=== PATIENT | female | born 2005 | race Caucasian/White ===

== ENCOUNTER 2023-12-12 22:14 | Emergency (ER) | payer BC, SELFPAY ==
--- NOTE | ~2023-12-12 | XR_ITS ---
EXAMINATION: XR CLAVICLE, RIGHT CLINICAL INFORMATION: Clavicular pain after being tackled COMPARISON: None available. TECHNIQUE: 2 of the right clavicle. FINDINGS: The clavicle is intact. The bones and soft tissues are normal. No fracture. Acromioclavicular joint alignment is anatomic. XR/XR clavicle RT IMPRESSION: Normal right clavicle.
[2023-12-12 22:48] VITALS: BP 103/46; PULSE 79; RESP 18; TEMP 36.6; O2SAT 100; BMI 23.9
== END 2023-12-13 03:52 | disposition left against medical advice (07) ==
PROVIDERS: Emergency Provider Emergency Medicine
DX: M54.2 Cervicalgia (principal); M25.511 Pain in right shoulder
CPT/HCPCS: 73000; 99281; 99283